=== PATIENT | female | born 1980 | race Caucasian/White ===

== ENCOUNTER 2018-09-03 09:15 | Inpatient (IN) ==
[2018-09-03] MEDS ORDERED: Famotidine 20 MG/2 ML VIAL IVP PRN (09:56)
[2018-09-03] MEDS ORDERED: Ondansetron 4 MG/2 ML VIAL IVP PRN ×3 (09:56→16:06)
[2018-09-03] MEDS ORDERED: Metoclopramide 10 MG/2 ML VIAL IVP PRN ×2 (09:56→16:06)
[2018-09-03] MEDS ORDERED: Naloxone 0.4 MG/ML INJ IVP PRN ×3 (09:56→14:01)
[2018-09-03] MEDS ORDERED: *HR* Nalbuphine 10 MG/ML AMPUL IVP PRN (09:56)
[2018-09-03] MEDS ORDERED: Ringers Solution, Lactated 1,000 ML IVC SCH ×2 (10:00→16:06)
--- NOTE | 2018-09-03 10:11 | OB/GYN History & Physical ---
Date of Encounter: 09/03/18 Time of Encounter: 10:04 Assessment and Plan (1) and not yet delivered in third trimester Current visit: Yes Status: Acute (2) 38 weeks gestation of Current visit: Yes Status: Acute (3) Type 2 diabetes mellitus affecting in third trimester, antepartum Current visit: Yes Status: Acute (4) Advanced maternal age (AMA), 40 years or greater Current visit: Yes Status: Acute (5) Aditya breech presentation Current visit: Yes Status: Acute We will attempt a external cephalic version if fails we will proceed on with section if successful will proceed on with induction of labor Qualifiers: Fetus number: single or unspecified fetus Qualified Code(s): O32.1XX0 - Maternal care for breech presentation, not applicable or unspecified (6) IUGR (intrauterine growth restriction) affecting care of mother Current visit: Yes Status: Acute Qualifiers: Fetus number: single or unspecified fetus Trimester: third trimester Qualified Code(s): O36.5930 - Maternal care for other known or suspected poor growth, third trimester, not applicable or unspecified (7) Positive GBS test Current visit: Yes Status: Acute We will start penicillin if were able to turn the baby. History of Present Illness HPI: Ms. Gaspar is a 38 year old female 3 para 1011 at 38-2/7 weeks who presented for possible external cephalic version primary low transverse section. Patient was noted to be aditya breech presentation and is a type II diabetic with IUGR. She is being followed by maternal medicine last ultrasound showed the baby to be at the 8th percentile aditya breech CHERIE was 12- 1/2 cm. The recommendation due to the IUGR is to deliver between 38 and 39 weeks. Patient was counseled that we could attempt to do an external cephalic version if everything is in the proper position if it is not we just proceed on with a primary section. Patient's diabetes has been managed with insulin the recommendation is to take her off the insulin after delivery and just placed on metformin 500 mg twice a day. Estimated weight at last scan was 2504 g which was 8th percentile. CHERIE was 12.69. Bedside ultrasound, the patient is confirm infant to be in a aditya breech presentation posterior fundal placenta noted spine is up. Patient is willing to give it an attempt it is not work will proceed on with section. Did recommend replacing epidural first and patient comfortable that we can proceed immediately for section if needed. Patient is GBS positive if we are able to turn the baby will start penicillin she is Rh-, rubella positive, varicella positive Past Med Surg Social Fam HX - Past Medical History Source: patient, old records reviewed Medical history: diabetes (type 2) Additional medical history: pcos. RH neg Psychiatric history: no psych history - Past Surgical History Surgical History: other Additional surgical history: sinus - Social History Smoking Status: Never smoker Smokeless Tobacco Status: No Alcohol use: none Drug use: none Occupational status: unemployed Current living situation: Home - Independent Activity Level: Independent ambulation Recent Out of Country Travel Within the Last 8 Weeks: No Exposure or Possible Exposure to Illness During Travel: No - Family History Father Living Status: Hx Family Cardiac Disorders: Yes (HTN) Hx Family Respiratory Disorders: No Hx Family Cancer: Yes (Lung cancer) Hx Family GI Disorders: No Hx Family Genitourinary Disorders: No Hx Family Endocrine Disorder: Yes (Diabetic type 2) Hx Family Musculoskeletal Disorders: No Hx Family Neuromuscular Disorders: No Hx Family Neurologic Disorders: No Hx Family HEENT Disorders: No Hx Family Autoimmune Disorders: No Hx Family Reproductive Disorders: No Hx Family Psychosocial Disorders: No Hx Family Medical Disorders: No - Additional Family History Additional family history: Family history noncontributory at this time Obstetrical History - Pregnancies : 3 Para: 1 Term: 1 : 0 Ab's: 1 Livin Medications and Allergies Ibuprofen 1 tab PO Q8H PRN #18 tablet 12/02/16 [Rx] Niacin 12/02/16 [History] metFORMIN 12/02/16 [History] Clotrimazole Vag CRM [Gyne-Lotrimin Vag CRM] 1 appl VG HS #7 cream 01/21/18 [Rx] metFORMIN [Glucophage] 1,000 mg PO BIDWM #14 tablet 01/21/18 [Rx] Allergy/AdvReac Type Severity Reaction Status Date / Time No Known Allergies Allergy Verified 01/21/18 16:09 Review of System OB All systems PM: reviewed and no additional remarkable complaints except as stated Exam - Constitutional Constitutional: well developed, well nourished, no acute distress, obese - HEENT HEENT: EOMI, PERRL, Mucus Membranes Moist - Neck Neck exam: full ROM - Lungs Respiratory exam: CTAB - Cardiovascular Cardiovascular exam: RRR - Abdomen Abdomen: Present: bowel sounds normal, gravid (Bedside ultrasound confirms aditya breech presentation head in the right upper quadrant spinous up posterior fundal placenta large pocket of fluid noted in the right side.) Results All other labs normal. - VTE Reasons for not Prescribing Prophylaxis: Treatment not Indicated - Low risk for VTE
[2018-09-03] MEDS ORDERED: EPHEDrine 50 MG/ML VIAL IVP PRN (10:25)
[2018-09-03] MEDS ORDERED: *HR* Ropivacaine/PF 0.2% 20 ML VIAL EP ONE (10:25)
[2018-09-03] MEDS ORDERED: *HR* FentaNYL (PF) 100 MCG/2 ML VIAL EP ONE (10:25)
[2018-09-03] MEDS ORDERED: Epidural Premix (fent/bupiv) 110 ML EP SCH (10:30)
--- NOTE | 2018-09-03 10:40 | Anesthesia Evaluation PreOp ---
Date of Encounter: 09/03/18 Time of Encounter: 10:12 - Past History Planned Operation: MAURICE for version attempt/possible section Cardiac History: Other (Hx palpitations) Pulmonary History: Former smoker (Quit smoking 2003, 1ppdx 6yrs) Other Medical History: Diabetes Type II (insulin controlled during pregancy, pre- metformin and diet controlled.) Anesthesia History: No Prior Anesthetic Complications, Past Anesthesia (Sinus surgery) : Yes Alcohol Use: none Drug use: none Medications and Allergies Ibuprofen 1 tab PO Q8H PRN #18 tablet 12/02/16 [Rx] Niacin 12/02/16 [History] metFORMIN 12/02/16 [History] Clotrimazole Vag CRM [Gyne-Lotrimin Vag CRM] 1 appl VG HS #7 cream 01/21/18 [Rx] metFORMIN [Glucophage] 1,000 mg PO BIDWM #14 tablet 01/21/18 [Rx] Allergy/AdvReac Type Severity Reaction Status Date / Time No Known Allergies Allergy Verified 01/21/18 16:09 - Meds/Allergy Pre-op Review Medications Reviewed: Yes Allergies Reviewed: Yes Beta Blockers on Current Med List: No Anesthesia Exam BP 134/86 P 93 R 16 T 98.4 Blood glucose: 92 Height: 5'1" Weight: 84.8kg NPO (# of Hours): 12 Pain Scale: 0 Pain Scale Used: Numeric (1 - 10) - HEENT Pupil (Motor): Pupils equal Mallampati: II Teeth: Normal Oral Opening: Greater than 3 - CURING PRESS MAINTAINER LOC: Oriented CURING PRESS MAINTAINER Motor: Normal RUE, Normal LUE, Normal RLE, Normal LLE, Normal Face CURING PRESS MAINTAINER Sensory: Normal: RUE, LUE, RLE, LLE, Face - Cardiac Rhythm: Regular Murmur: None JVD: No Carotid Bruit: No - Pulmonary Breath Sounds: bilateral Clear Respiratory Effort: Symmetrical Anesthesia Assess/Plan ASA Score: 3 Level of consciousness: Cooperative Anesthetic Plan: Epidural Autologous Blood: Yes Monitoring Plan: Standard Monitors Recovery Plan: Other (version attempt with labor to follow current plan, csection potential with PACU transfer)
[2018-09-03] MEDS ORDERED: Chloroprocaine/PF 20 ML VIAL INFILT ONE ×2 (10:59→12:33)
[2018-09-03 11:36] LABS: Basophils % 0.3 %; Eosinophils # 0.2 K/mcL (0.0-0.6); Eosinophils % 2.1 %; Hematocrit 38.7 % (35.3-44.9); Hemoglobin 12.7 g/dL (11.5-15.4); Immature Granulocytes % 0.3 % (0-4); Lymphocytes # 2.2 K/mcL (0.6-4.6); Lymphocytes % 27.7 %; Mean Corpuscular HGB Conc 32.8 g/dL (31.6-35.5); Mean Corpuscular Hemoglobin 27.4 pg (28.0-33.3); Mean Corpuscular Volume 83.6 fL (83.0-100.0); Mean Platelet Volume 10.4 fL (9.4-12.4); Monocytes # 0.5 K/mcL (0.0-1.3); Monocytes % 6.7 %; Platelet Count 203 K/mcL (140-400); Red Blood Count 4.63 M/mcL (3.82-4.97); Red Cell Distribution Width 14.3 % (11.5-14.5); Segmented Neutrophils % 62.9 %
--- NOTE | 2018-09-03 11:44 | Anesthesia Procedures ---
Date of Encounter: 09/03/18 Time of Encounter: 11:13 Procedures: Anesthesia - Epidural/Spinal Patient ID/Chart reviewed: Yes Patient examined: Yes OB Eval: Gestational age: 38.2 OB Eval: : 2 OB Eval: Hx Para: 1 OB Eval: Contractions: Non-stressed pattern Consent Obtained: Yes Supplemental Oxygen: None/Room Air Site Prep: Aseptic Technique, Sterile prep and drape, Povidone-Iodine 1% Patient position: upright Local Anesthetic: Lidocaine 1% Amount of Local Anesthetic used: 3 Touhy Needle Gauge: 18 Touhy Needle Depth (cm): 5 Catheter Depth at Skin (cm): 11 Test Dose (1.5% Lido + Epi): Volume given (mls): 3 Test Dose Result: Negative Infusion Med: 0.125% Bupivacaine w/ 2 mcg/ml Fentanyl Infusion Rate (mls/hr): [address]: Tegaderm, Tape Interspace Used: L3-L4 Loss of Resistance (PEYTON): Yes Blood: Yes CSF: Yes (combined spinal epidural) Paresthesia: No Spinal Needle Gauge: 25 Spinal Dose: chloroprocaine 3% 1ml (30mg) Procedure: Combined Spinal Epidural performed in upright position. PEYTON achieved with normal saline. Spinal performed through epidural needle with 27G pencan. Epidural catheter threaded with ease. VSS throughout. Vitals + FHT's: 1113 BP 138/84 P 95 R 16 1135 BP 112/58 P 107 R 16 Following 100mcg phenylephrine. Pt mildly nauseated. Monitoring BP to follow.
--- NOTE | 2018-09-03 12:01 | Operative Note ---
Date of procedure: 09/03/18 Pre-op diagnosis: Intrauterine at 38-2/7 week, aditya breech presentation, IUGR, typ Post-op diagnosis: same Procedure: Attempted external cephalic version Complications: None Anesthesia: spinal Surgeon: Lasha Bridges Was there an staff assistant present: No Estimated blood loss (cc): 0 Specimen: none Condition: stable Disposition: other Procedure in Detail: Patient is a 38-year-old 3 para 1011 at 38-2/7 weeks who presented today for an attempted external cephalic version possible section. Patient is a known aditya breech presentation IUGR and type II diabetic. The baby had fallen off the growth curve was less than the 10th percentile and was recommend by maternal medicine that she be delivered between 38-39 weeks. In aditya breech we recommended possibly trying to turn the baby. We could not proceeding on with section. Ultrasound done prior to the procedure showed the baby to be aditya breech spine was up head in the right upper quadrant there was a large pocket of fluid on the right side minimal on the left. We did recommend an attempted version if we could not do it we just proceed on with section. Recommended placing an epidural spinal patient prior to the procedure for pain control. Procedure spinal anesthesia was placed patient was comfortable she was placed in the dorsosupine position consent in Timeout had been previously obtained. Mineral oil was applied to the abdomen to help is attempt the version. We attempted multiple times to try to get the baby to turn unfortunately baby was not moving out of that presentation. It was causing some discomfort to the patient and we decided to stop. We did periodically monitored baby with ultrasound in between attempts to make sure heart tones were in the normal range which they were. Since we had made no progression in getting the baby's head down into the pelvis even to a transverse presentation procedure was terminated and she was advised to just proceed on with section.
[2018-09-03] MEDS ORDERED: *HR* Oxytocin 10 UNIT/ML VIAL IM ONE ×2 (12:12→13:24)
[2018-09-03] MEDS ORDERED: Ondansetron 4 MG/2 ML VIAL ONE (12:13)
[2018-09-03] MEDS ORDERED: Dexamethasone 4 MG/ML VIAL ONE (12:13)
[2018-09-03] MEDS ORDERED: *HR* Morphine Sulfate/PF 10 MG/10 ML AMPUL ONE (12:56)
[2018-09-03] MEDS ORDERED: Lidocaine -MPF 2% 5 ML VIAL ONE (13:20)
[2018-09-03] MEDS ORDERED: Ringers Solution, Lactated 1,000 ML ONE (13:23)
--- NOTE | 2018-09-03 13:33 | OB/GYN Procedure Note ---
Section - Date of procedure: 09/03/18 Preop diagnosis: other (Intrauterine at 38-2/7 weeks, aditya breech presentation, IUGR, type II diabetic in , failed external cephalic version) Post-op diagnosis: same Procedure: primary low transverse Surgeon: Lasha Holman Blood Loss: 500 Was there an elder assistant present: Yes Hairspring Truer: Michelle Melton ([email or web address]) Electronics Utility Worker: Christian Garzon Anesthesia Type: Epidural section complications: none Disposition: L&D Recovery Room Specimens: Placenta - (s) A Delivery Date: 09/03/18 Infant Delivery Time: 12:47 Presentation: aditya breech Route of delivery: other ( section) Gender: Male Viability: Viable Pounds: 6 Ounces: 10 Gram Weight: 3 kg at 1 minute: 7 at 5 minutes: 9 Specimens collected: cord blood Placenta: complete extraction Cord: 3 umbilical vessels - Narrative Narrative: Patient is a 38-year-old 3 para 1011 at 38-2/7 weeks who presented for possible external cephalic version possible section. Patient was a known aditya breech presentation with schedule for delivery secondary to IUGR. Baby was less than 8th percentile and has been managed by maternal medicine. She is a type II diabetic on insulin. They recommended because of the fall off the growth curve that she be delivered between 38 and 39 weeks. She was noted be aditya breech posterior placenta and she was offered a potential external cephalic version. We did assess the baby on admission baby was still aditya breech spine was up posterior placenta with adequate fluid we did attempt an external version but could not get this baby to move. We decided since it was not moving we just proceed on with section. Procedure: Patient was taken to the operating room where previous epidural anesthesia was found be adequate. She is placed in the dorsal supine position prepped and draped in usual fashion. Timeout was then obtained. Pfannenstiel incision was made with a scalpel carried down through the underlying tissue to fascia was identified. Fascia was nicked in midline extended laterally with Bocanegra scissors. The superior and inferior edges of the fascia grasped tented up and dissected off the rectus muscles. These were in the midline parietal peritoneum was identified tented up and after sharply. This was extended superiorly inferiorly with Metzenbaum scissors. Bladder blade was inserted. Uterus was noted to be displaced to the right and rotated almost 90 degrees to with the left adnexa was anterior. We were able to rotate the uterus so he get to the lower uterine segment the vesicouterine peritoneum was tented up and entered sharply then extended laterally. Bladder flap was created digitally. The lower uterine segment was incised with a scalpel and extended laterally with bandage scissors. The 's buttocks was then brought up through the incision once the hips of been deliver the arms swept across the nohelia st followed by the delivery of the head. It was bulb suctioned as the cord was cut and cut. Infant was handed off to waiting pediatric team. Cord blood was collected placenta was then manually removed uterus is exteriorized and cleaned of all clots and debris. The lower uterine segment was closed using 0 Vicryl in a running locking stitch by a 2 layer closure. Good hemostasis was noted time. She should return to the abdomen. After the uterus ovaries and tubes were noted be normal. She did have what appeared to be a 2 x 2 centimeters intramural fibroid on the anterior surface previously known. The gutters were cleaned of all clots and debris then copiously irrigated with no active bleeding noted. The parietal peritoneum was brought together with a 2-0 Vicryl in a running stitch, the fascia was then closed using a #1 stratafix in a running stitch. Because of the subcutaneous tissue been so thick we decided to close this by a 2 layer closure within 0 plain. The skin was then closed using a 4-0 Vicryl in a subcuticular manner. All needles lap sponge counts were correct 3 she did receive preoperative antibiotics. She be observed 2 hours before being taken postop floor.
[2018-09-03] MEDS ORDERED: *HR* HYDROmorphone (PF) 1 MG/ML SYRINGE IVP PRN (14:01)
[2018-09-03] MEDS ORDERED: *HR* OxyCODONE/APAP 5/325 TABLET PO PRN (14:01)
[2018-09-03] MEDS ORDERED: Ibuprofen 400 MG TABLET PO PRN (14:01)
[2018-09-03] MEDS ORDERED: *HR* Morphine 2 MG/ML SYRINGE IVP PRN (14:01)
[2018-09-03] MEDS ORDERED: Acetaminophen IV 1,000 MG/100 ML INFUS..BTL IVPB ONE (14:06)
[2018-09-03] MEDS ORDERED: Sennosides 8.6 MG TABLET PO PRN (16:06)
[2018-09-03] MEDS ORDERED: Rho Immune Globulin 1,500 UNIT SYRINGE IM ONE (16:06)
[2018-09-03] MEDS: Oxytocin 20 units/ LR 1000 mL 20 UNIT/1,000 ML BAG IVC SCH (17:14)
--- NOTE | 2018-09-03 17:39 | Anesthesia Evaluation Post Op ---
Date of Encounter: 09/03/18 Time of Encounter: 15:30 - Vital Signs Vital Signs: Vital Signs Temperature 97.6 F 09/03/18 15:58 Pulse Rate 58 09/03/18 15:58 Respiratory Rate 14 09/03/18 15:58 Blood Pressure 103/62 09/03/18 15:58 O2 Sat by Pulse Oximetry 98 09/03/18 15:58 Temperature 97.6 F 09/03/18 16:58 Pulse Rate 106 09/03/18 16:58 Respiratory Rate 14 09/03/18 16:58 Blood Pressure 97/58 09/03/18 16:58 O2 Sat by Pulse Oximetry 94 09/03/18 16:58 - Lungs Lungs: Clear Ascult./Percussion - Airway Airway: Non-obstructed - Cardiovascular Regular Rate - Mental Status Mental Status: Alert & Oriented, Answers Appropriately - Pain Pain Scale: 2 Pain Scale used: Numeric (1 - 10) - Nausea Vomiting Nausea Vomiting: Not Present - Hydration Hydration: NPO, Montoya catheter - Discharge PostOp Status: Transfer Patient to floor
[2018-09-03] MEDS: *HR* Metformin 500 MG TABLET PO SCH (18:12)
[2018-09-04] MEDS: Ibuprofen 600 MG TABLET PO PRN ×4 (03:02→20:57)
[2018-09-04] MEDS: Oxytocin 20 units/ LR 1000 mL 20 UNIT/1,000 ML BAG IVC SCH (03:09)
[2018-09-04 07:04] LABS: Basophils % 0.2 %; Eosinophils # 0.1 K/mcL (0.0-0.6); Eosinophils % 0.6 %; Hematocrit 33.2 % (35.3-44.9); Immature Granulocytes % 0.5 % (0-4); Lymphocytes # 1.6 K/mcL (0.6-4.6); Lymphocytes % 16.3 %; Mean Corpuscular HGB Conc 32.2 g/dL (31.6-35.5); Mean Corpuscular Volume 83.8 fL (83.0-100.0); Mean Platelet Volume 10.5 fL (9.4-12.4); Monocytes # 0.7 K/mcL (0.0-1.3); Monocytes % 7.2 %; Neutrophils # 7.4 K/mcL (1.6-8.9); Platelet Count 168 K/mcL (140-400); Red Blood Count 3.96 M/mcL (3.82-4.97); Red Cell Distribution Width 14.2 % (11.5-14.5); Segmented Neutrophils % 75.2 %
[2018-09-04 07:08] LABS: Hemoglobin 10.7 g/dL (11.5-15.4)
[2018-09-04] MEDS: Prenatal Vit/FA 1 EACH TABLET PO SCH (08:54)
[2018-09-04] MEDS: Simethicone 80 MG TAB.CHEW PO PRN ×2 (09:44→17:51)
[2018-09-04] MEDS ORDERED: Rho Immune Globulin 1,500 UNIT SYRINGE IM ONE (09:54)
--- NOTE | 2018-09-04 10:12 | OB/GYN Progress Note ---
Date of Encounter: 09/04/18 Time of Encounter: 10:09 - Assessment and Plan (1) Status post primary low transverse section Current Visit: Yes Status: Acute Meeting all day 1 milestones Continue routine PP care Anticipate d/c home tomorrow (2) Acute blood loss as cause of postoperative anemia Current Visit: Yes Status: Acute Continue iron supplementation daily (3) Type 2 diabetes mellitus treated without insulin Current Visit: Yes Status: Acute Continue metformin 500 mg twice a day Follow-up with electrolysis engineer on discharge Subjective - Subjective Principal diagnosis: s/p PLTCS Interval history: Feeling well. Out of bed without dizziness. Some abdominal discomfort-using binder. Cramping minimal, using ibuprofen and Percocet. Bottlefeeding every 2- 3 hours. Voiding without difficulty. Passing flatus, no BM yet. Tolerating clear liquid diet. Patient reports: appetite normal, voiding normally, pain well controlled, ambulating normally : doing well, bottle feeding Objective - Vital Signs Latest vital signs: Vital Signs Temp Pulse Resp BP Pulse Ox 09/04/18 08:25 97.9 F 68 16 97/59 09/04/18 05:09 98.9 F 62 16 109/57 96 09/04/18 01:09 97.9 F 77 16 110/70 99 09/03/18 19:45 97.6 F 56 16 117/67 97 09/03/18 18:58 97.7 F 70 17 114/62 99 09/03/18 18:04 98.1 F 68 14 111/63 98 09/03/18 16:58 97.6 F 106 14 97/58 94 09/03/18 16:42 98.0 F 63 14 103/67 97 09/03/18 15:58 97.6 F 58 14 103/62 98 Intake and Output 09/03/18 09/04/18 09/04/18 23:59 07:59 15:59 Intake Total 300 / 300 Output Total 550 / 550 1450 / 1850 400 / 1850 Balance -550 / -550 -1150 / -1550 -400 / -1550 Intake: IV Fluids 0 / 0 Pitocin 20 unit In 1,000 ml @ 0 / 0 125 mls/hr IVC .Q8H NANCI Rx#: [id number] Oral 300 / 300 Output: Urine 300 / 300 400 / 400 Catheter 250 / 250 1450 / 1450 Other: Meal Breakfast Percent of Meal Consumed 50% Weight 82.645 kg Blood Glucose* 93 105 Patient Weight 09/04/18 23:59 Weight 82.645 kg - Exam Lungs: bilateral: normal Chest: Normal S1, Normal S2 Extremities: Present: normal Abdomen: Present: normal appearance, soft Incision: Present: normal, intact, dressed Uterus: Present: normal, firm Fundal Height: 0 (midline) - Labs Labs: Laboratory Results - last 24 hr 09/03/18 09/03/18 09/03/18 09:40 10:09 13:55 WBC 7.9 RBC 4.63 Hgb 12.7 Hct 38.7 MCV 83.6 MCH 27.4 L MCHC 32.8 RDW 14.3 Plt Count 203 MPV 10.4 Immature Gran % 0.3 Seg Neutrophils % 62.9 Lymphocytes % 27.7 Monocytes % 6.7 Eosinophils % 2.1 Basophils % 0.3 Neutrophils # 5.0 Lymphocytes # 2.2 Monocytes # 0.5 Eosinophils # 0.2 Basophils # 0.0 POC Glucose 92 Screen NEGATIVE Baby's Blood Type O RH POSITIVE Mother's Blood Type A RH NEGATIVE Rhogam Indicated YES Rhogam Req for Mother 1 09/03/18 09/03/18 09/04/18 14:21 22:42 01:15 WBC RBC Hgb Hct MCV MCH MCHC RDW Plt Count MPV Immature Gran % Seg Neutrophils % Lymphocytes % Monocytes % Eosinophils % Basophils % Neutrophils # Lymphocytes # Monocytes # Eosinophils # Basophils # POC Glucose 107 H 93 105 H Screen Baby's Blood Type Mother's Blood Type Rhogam Indicated Rhogam Req for Mother 09/04/18 06:23 WBC 9.8 RBC 3.96 Hgb 10.7 L D Hct 33.2 L MCV 83.8 MCH 27.0 L MCHC 32.2 RDW 14.2 Plt Count 168 MPV 10.5 Immature Gran % 0.5 Seg Neutrophils % 75.2 Lymphocytes % 16.3 Monocytes % 7.2 Eosinophils % 0.6 Basophils % 0.2 Neutrophils # 7.4 Lymphocytes # 1.6 Monocytes # 0.7 Eosinophils # 0.1 Basophils # 0.0 POC Glucose Screen Baby's Blood Type Mother's Blood Type Rhogam Indicated Rhogam Req for Mother
[2018-09-04] MEDS: *HR* Metformin 500 MG TABLET PO SCH ×2 (10:28→17:19)
[2018-09-04] MEDS: *HR* OxyCODONE/APAP 5/325 TABLET PO PRN ×3 (12:01→22:57)
[2018-09-04] MEDS ORDERED: *HR* Metformin 500 MG TABLET PO SCH (20:23)
[2018-09-05] MEDS: Ibuprofen 600 MG TABLET PO PRN (02:40)
[2018-09-05] MEDS: Simethicone 80 MG TAB.CHEW PO PRN (02:40)
[2018-09-05] MEDS: Prenatal Vit/FA 1 EACH TABLET PO SCH (07:42)
[2018-09-05] MEDS: *HR* OxyCODONE/APAP 5/325 TABLET PO PRN (07:42)
[2018-09-05 08:03] VITALS: BP 111/72
--- NOTE | 2018-09-05 10:55 | Discharge Summary ---
Date of Encounter: 09/05/18 Time of Encounter: 10:52 - Discharge Diagnosis (1) Type 2 diabetes mellitus affecting in third trimester, antepartum Priority: Primary Status: Acute Comments: Continues on metformin and will follow with pcp (2) Status post primary low transverse section Priority: Primary Status: Acute Comments: Stable POD#2, pain well managed on po pain medication, tolerates diet, passing flatus, desires discharge - Discharge Medications Prescriptions: New Ibuprofen [Motrin] 600 mg PO Q6HR PRN #60 tablet PRN Reason: Cramping OxyCODONE/APAP 5/325 [Percocet 5/325 MG] 1 each PO Q4HR PRN 5 Days #20 tablet PRN Reason: Moderate pain 4-6 Docusate [Colace] 100 mg PO BID #30 capsule Simethicone [Gas-X] 80 mg PO TID PRN tab.chew PRN Reason: Dyspepsia metFORMIN [Glucophage] 1,000 mg PO BIDWM tablet Continued Niacin metFORMIN Ibuprofen 1 tab PO Q8H PRN #18 tablet PRN Reason: Pain metFORMIN [Glucophage] 1,000 mg PO BIDWM #14 tablet Discontinued Clotrimazole Vag CRM [Gyne-Lotrimin Vag CRM] 1 appl VG HS #7 cream Home Medications: Ibuprofen 1 tab PO Q8H PRN #18 tablet 12/02/16 [Rx] Niacin 12/02/16 [History] metFORMIN 12/02/16 [History] metFORMIN [Glucophage] 1,000 mg PO BIDWM #14 tablet 01/21/18 [Rx] Docusate [Colace] 100 mg PO BID #30 capsule 09/05/18 [Rx] Ibuprofen [Motrin] 600 mg PO Q6HR PRN #60 tablet 09/05/18 [Rx] OxyCODONE/APAP 5/325 [Percocet 5/325 MG] 1 each PO Q4HR PRN 5 Days #20 tablet 09/05/18 [Rx] Simethicone [Gas-X] 80 mg PO TID PRN tab.chew 09/05/18 [Rx] metFORMIN [Glucophage] 1,000 mg PO BIDWM tablet 09/05/18 [Rx] Allergies/Adverse Reactions: Allergy/AdvReac Type Severity Reaction Status Date / Time No Known Allergies Allergy Verified 01/21/18 16:09 Data Procedures and tests throughout hospitalization: Laboratory Tests 09/03/18 09/03/18 09/03/18 09:40 10:09 13:55 WBC 7.9 RBC 4.63 Hgb 12.7 Hct 38.7 MCV 83.6 MCH 27.4 L MCHC 32.8 RDW 14.3 Plt Count 203 MPV 10.4 Immature Gran % 0.3 Seg Neutrophils % 62.9 Lymphocytes % 27.7 Monocytes % 6.7 Eosinophils % 2.1 Basophils % 0.3 Neutrophils # 5.0 Lymphocytes # 2.2 Monocytes # 0.5 Eosinophils # 0.2 Basophils # 0.0 POC Glucose 92 Screen NEGATIVE Baby's Blood Type O RH POSITIVE Mother's Blood Type A RH NEGATIVE Rhogam Indicated YES Rhogam Req for Mother 1 09/03/18 09/03/18 09/04/18 14:21 22:42 01:15 WBC RBC Hgb Hct MCV MCH MCHC RDW Plt Count MPV Immature Gran % Seg Neutrophils % Lymphocytes % Monocytes % Eosinophils % Basophils % Neutrophils # Lymphocytes # Monocytes # Eosinophils # Basophils # POC Glucose 107 H 93 105 H Screen Baby's Blood Type Mother's Blood Type Rhogam Indicated Rhogam Req for Mother 09/04/18 09/04/18 09/04/18 06:23 14:41 19:51 WBC 9.8 RBC 3.96 Hgb 10.7 L D Hct 33.2 L MCV 83.8 MCH 27.0 L MCHC 32.2 RDW 14.2 Plt Count 168 MPV 10.5 Immature Gran % 0.5 Seg Neutrophils % 75.2 Lymphocytes % 16.3 Monocytes % 7.2 Eosinophils % 0.6 Basophils % 0.2 Neutrophils # 7.4 Lymphocytes # 1.6 Monocytes # 0.7 Eosinophils # 0.1 Basophils # 0.0 POC Glucose 125 H 125 H Screen Baby's Blood Type Mother's Blood Type Rhogam Indicated Rhogam Req for Mother 09/05/18 09:39 WBC RBC Hgb Hct MCV MCH MCHC RDW Plt Count MPV Immature Gran % Seg Neutrophils % Lymphocytes % Monocytes % Eosinophils % Basophils % Neutrophils # Lymphocytes # Monocytes # Eosinophils # Basophils # POC Glucose 125 H Screen Baby's Blood Type Mother's Blood Type Rhogam Indicated Rhogam Req for Mother Labs on day of discharge: Labs from last 24 hours 09/05/18 09/04/18 09/04/18 09:39 19:51 14:41 POC Glucose 125 H 125 H 125 H Date of admission: 09/03/18 09:15 Primary care physician: Daniel Mullen MD Discharging clinician: Kassandra Ashford Anticipated date of discharge: 09/05/18 - Patient Status Disposition: Home, Self-Care Condition: Good Functional capacity at discharge: independent ambulation Overall status at discharge: patient is progressing back to baseline - Discharge Instructions Follow Up With: Daniel Mullen MD [Primary Care Provider] - Lasha Bridges DO [Partnered Physician] - - Diet and Activity Activity: resume usual activities as tolerated Diet: regular diet Hospital Course Reason for admission: section Delivery: section Episiotomy: none Laceration: none complications: none Discharge diagnosis: IUP at term delivered baby: male Hospital course: Section - Date of procedure: 09/03/18 Preop diagnosis: other (Intrauterine at 38-2/7 weeks, aditya breech presentation, IUGR, type II diabetic in , failed external cephalic version) Post-op diagnosis: same Procedure: primary low transverse Surgeon: Lasha Bridges Quantitated Blood Loss: 500 Was there an payroll assistant present: Yes Crane Engineer: Michelle Melton ([email or web address]) Feeder Associate: Christian Garzon Anesthesia Type: Epidural section complications: none Disposition: L&D Recovery Room Specimens: Placenta - (s) Infant A Infant Delivery Date: 09/03/18 Delivery Time: 12:47 Presentation: aditya breech Route of delivery: other ( section) Gender: Male Viability: Viable Pounds: 6 Ounces: 10 Gram Weight: 3 kg at 1 minute: 7 at 5 minutes: 9 Specimens collected: cord blood Placenta: complete extraction Cord: 3 umbilical vessels Stable in PP and appropriate for discharge OARRS reviewed Time Attestation: Total time spent providing and/or coordinating discharge services: Time Spent: Less than 30 minutes - VTE Reasons for not Prescribing Prophylaxis: Treatment not Indicated - Low risk for VTE Documentation of Mechanical Device: Intermittent pneumatic compression device Exam - Constitutional Vitals: Temp Pulse Resp BP Pulse Ox 97.8 F 67 14 111/72 95 09/05/18 07:45 09/05/18 07:45 09/05/18 07:45 09/05/18 07:45 09/04/18 19:54 General appearance IM: A&O X 3 - Respiratory Respiratory exam: Present: CTAB - Cardiovascular Cardiovascular exam IM: Present: RRR - GI/Abdominal GI/Abdominal exam IM: soft Incision: intact, dressed (KHADAR) - Uterine Tone: Firm Uterus Position: 1 Finger Below Umbilicus - Extremities Exam Extremities exam IM: Present: normal capillary refill, normal inspection - Neurological Exam Neurological exam: normal gait, oriented X3 - Psychiatric Additional comments: reports good mood
== END 2018-09-05 12:51 | disposition home or self-care (01) | DRG 540 ==
LOC: 1NENULAB 09:15 → 1NENUOBS 15:49
PROVIDERS: ADMIT Obstetrics & Gynecology; ATTEND Obstetrics & Gynecology